=== PATIENT | female | born 1985 | race Two or more races ===

== ENCOUNTER 2016-05-19 11:27 | Emergency (ER) | payer MEDICAID ==
[~2016-05-19] VITALS: Ht 175.3 cm; Wt 105.2 kg
--- NOTE | 2016-05-19 12:53 | NUR ---
BIB SELF, CC; HEADACHE FOR 2 WEEKS, NO OTHER MEDICAL COMPLAINTS NOW
--- NOTE | 2016-05-19 12:54 | NUR ---
Patient discharged to home in stable condition. Written and verbal after care instructions given. Patient verbalizes understanding of instruction. NAD NOTED UPON DISCHARGE.
[2016-05-19 12:55] VITALS: BP 105/63
== END 2016-05-19 12:55 | disposition home or self-care (01) ==
LOC: ER 11:33
DX: R51 Headache (principal)
CPT/HCPCS: 93005; 99283; A4606; Z7610